=== PATIENT | male | born 1995 | race Caucasian/White ===

== ENCOUNTER 2018-10-12 23:50 | Observation (INO) | payer OTHER ==
[2018-10-12] MEDS ORDERED: Diphtheria,Pertussis(Acell),Tetanus Vaccine 0.5 ML Syringe IM ONE (23:52)
[2018-10-12] MEDS ORDERED: Morphine 2 MG/ML Syringe IVPUSH ONE (23:52)
[2018-10-12] MEDS ORDERED: Sodium Chloride 0.9% 1,000 ML IV ONE (23:52)
[2018-10-12] MEDS ORDERED: Ondansetron 4 MG/2 ML SDV IVPUSH ONE (23:53)
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
[2018-10-13] MEDS ORDERED: diphenhydrAMINE 50 MG/ML SDV IVPUSH PRN (00:43)
[2018-10-13] MEDS ORDERED: Sodium Chloride 0.9% 2.5 ML Syringe FLUSH PRN (00:43)
[2018-10-13] MEDS ORDERED: Sodium Chloride 0.9% 10 ML SDV IV PRN (00:43)
[2018-10-13] MEDS ORDERED: Sodium Chloride 0.9% 10 ML Syringe FLUSH PRN (00:43)
[2018-10-13] MEDS ORDERED: HYDROmorphone 2 MG/ML SDV IVPUSH PRN (00:43)
[2018-10-13] MEDS ORDERED: Acetaminophen/HYDROcodone 325-5 MG Tab PO PRN (00:43)
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
[2018-10-13] MEDS: Sodium Chloride 0.9% 1,000 ML IV SCH ×2 (02:10→10:15)
[2018-10-13] MEDS: Bacitracin Oint 28.35 GM Tube TOP SCH ×2 (02:26→13:18)
[2018-10-13] MEDS ORDERED: HYDROmorphone 1 MG/ML Syringe IVPUSH PRN (07:45)
[2018-10-13] MEDS ORDERED: Bacitracin Oint 28.35 GM Tube TOP SCH (09:00)
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
== END 2018-10-13 16:00 | disposition home or self-care (01) ==
LOC: MW.ED 23:50 → MW.MS 10-13 00:43
PROVIDERS: ADMIT Surgery; ATTEND Surgery
DX: T20.29XA Burn of second degree of multiple sites of head, face, and neck, initial encounter (principal); T23.242A Burn of second degree of multiple left fingers (nail), including thumb, initial encounter; T23.241A Burn of second degree of multiple right fingers (nail), including thumb, initial encounter; W40.1XXA Explosion of explosive gases, initial encounter
CPT/HCPCS: 71045; 90471; 90715; 96361; 96374; 96375; 99285; A9270; J2270; J2405; J7040; G0378

== ENCOUNTER 2020-01-31 17:11 | Emergency (ER) | payer SELFPAY ==
[2020-01-31] MEDS ORDERED: Dexamethasone 10 MG/ML SDV PO ONE (17:57)
[2020-01-31] MEDS ORDERED: Amoxicillin 500 MG Cap PO ONE (17:59)
--- NOTE | 2020-01-31 18:05 | EDM.PDOC ---
ED HPI GENERAL MEDICAL PROBLEM - General Chief Complaint: ENT Problem Stated Complaint: POSSIBLE STREP THROAT Time Seen by Provider: 01/31/20 17:11 Source of Information: Reports: Patient History Limitations: Reports: No Limitations - History of Present Illness INITIAL COMMENTS - FREE TEXT/NARRATIVE: HISTORY AND PHYSICAL: History of present illness: Patient is a 24-year-old male who presents to the ED today with concern of 1 day of sore throat. Patient states that he has been able to eat and drink but does have pain with swallowing. Patient states he has had strep throat in the past and that his symptoms today feel similar to when he has strep throat. Patient denies any other symptoms or concerns. Patient denies any health history. Patient denies fever, chills, chest pain, shortness of breath, or cough. Denies headache, neck stiff ness, change in vision, syncope, or near syncope. Denies nausea, vomiting, abdominal pain, diarrhea, constipation, or dysuria. Has not noted any blood in urine or stool. Patient has been eating and drinking appropriately. Review of systems: As per history of present illness and below otherwise all systems reviewed and negative. Past medical history: As per history of present illness and as reviewed below otherwise noncontributory. Surgical history: As per history of present illness and as reviewed below otherwise noncont ributory. Social history: See social history for further information Family history: As per history of present illness and as reviewed below otherwise noncontributory. Physical exam: General: Patient is alert, oriented, and in no acute distress. Patient sitting comfortably on exam table. HEENT: Atraumatic, normocephalic, pupils equal and reactive bilaterally, negative for conjunctival pallor or scleral icterus, mucous membranes moist, TMs normal bilaterally, uvula is mildly enlarged but midline, tonsils with white exudate bilaterally, neck supple, nontender, trachea midline. No drooling or trismus noted. No meningeal signs. No hot potato voice noted. Lungs: Clear to auscultation, breath sounds equal bilaterally, chest nontender. Heart: S1S2, regular rate and rhythm without overt murmur Abdomen: Soft, nondistended, nontender. Negative for masses or hepatosplenomegaly. Negative for costovertebral tenderness. Pelvis: Stable nontender. Genitourinary: Deferred. Rectal: Deferred. Skin: Intact, warm, dry. No lesions or rashes noted. Extremities: Atraumatic, negative for cords or calf pain. Neurovascular unremarkable. Neuro: Awake, alert, oriented. Cranial nerves II through XII unremarkable. Cerebellum unremarkable. Motor and sensory unremarkable throughout. Exam nonfocal. Notes: Dr. Starkey verbally involved in patient care. The pharmacies are closed today, will give first dose of amoxicillin today in the ED. Discussed importance for follow-up with a primary care provider. Voices understanding and is agreeable to plan of care. Denies any further questions or concerns at this time. Diagnostics: None Therapeutics: Decadron, Amoxicillin Prescription: Amoxicillin Impression: Uvulitis Pharyngitis Plan: 1. Take medication as prescribed. You can alternate ibuprofen and Tylenol as directed for pain and discomfort. 2. Follow-up with a primary care provider as discussed. Return to the ED as needed and as discussed. Definitive disposition and diagnosis as appropriate pending reevaluation and review of above. thorat Pain Score (Numeric/FACES): 5 - Related Data Allergies Allergy/AdvReac Type Severity Reaction Status Date / Time No Known Allergies Allergy Verified 01/31/20 17:26 Home Meds: Home Meds Amoxicillin 500 mg PO BID 10 Days #20 tablet 01/31/20 [Rx] Past Medical History - Past Health History Medical/Surgical History: Denies Medical/Surgical History Social & Family History - Family History Family Medical History: Noncontributory - Caffeine Use Caffeine Use: Reports: None - Recreational Drug Use Recreational Drug Use: No ED ROS GENERAL - Review of Systems Review Of Systems: Comprehensive ROS is negative, except as noted in HPI. ED EXAM, GENERAL - Physical Exam Exam: See Below (see dictation) Course - Vital Signs Last Recorded V/S: Last Vital Signs Temp 97.5 F 01/31/20 17:27 Pulse 82 01/31/20 17:27 Resp 18 01/31/20 17:27 BP 142/61 H 01/31/20 17:27 Pulse Ox 99 01/31/20 17:27 - Orders/Labs/Meds Meds: Medications Discontinued Medications Generic Name Dose Route Start Last Admin Trade Name Freq PRN Reason Stop Dose Admin Amoxicillin 500 mg 01/31/20 17:59 Amoxil PO 01/31/20 18:00 ONETIME ONE Dexamethasone 8 mg 01/31/20 17:57 Dexamethasone PO 01/31/20 17:58 ONETIME ONE Departure - Departure Time of Disposition: 18:00 Disposition: Home, Self-Care 01 Clinical Impression: Uvulitis Pharyngitis Qualifiers: Pharyngitis/tonsillitis etiology: unspecified etiology Qualified Code(s): J02.9 - Acute pharyngitis, unspecified - Discharge Information Prescriptions: Amoxicillin 500 mg PO BID 10 Days #20 tablet Referrals: PCP,None [Primary Care Provider] - Additional Instructions: The following information is given to patients seen in the emergency department who are being discharged to home. This information is to outline your options for follow-up care. We provide all patients seen in our emergency department with a follow-up referral. The need for follow-up, as well as the timing and circumstances, are variable depending upon the specifics of your emergency department visit. If you don't have a primary care physician on staff, we will provide you with a referral. We always advise you to contact your personal physician following an emergency department visit to inform them of the circumstance of the visit and for follow-up with them and/or the need for any referrals to a consulting specialist. The emergency department will also refer you to a specialist when appropriate. This referral assures that you have the opportunity for follow-up care with a specialist. All of these measure are taken in an effort to provide you with optimal care, which includes your follow-up. Under all circumstances we always encourage you to contact your private physician who remains a resource for coordinating your care. When calling for follow-up care, please make the office aware that this follow-up is from your recent emergency room visit. If for any reason you are refused follow-up, please contact the [facility] at and asked to speak to the emergency department charge nurse. [facility] [address] [place] [id number] [id number] 1. Take medication as prescribed. You can alternate ibuprofen and Tylenol as directed for pain and discomfort. 2. Follow-up with a primary care provider as discussed. Return to the ED as needed and as discussed. Sepsis Event Note (ED) - Evaluation Sepsis Screening Result: No Definite Risk - Focused Exam Vital Signs: Vital Signs Temp Pulse Resp BP Pulse Ox 01/31/20 17:27 97.5 F 82 18 142/61 H 99
== END 2020-01-31 18:35 | disposition home or self-care (01) ==
LOC: MW.ED 17:11
DX: J02.9 Acute pharyngitis, unspecified (principal); K12.2 Cellulitis and abscess of mouth
CPT/HCPCS: 99282; A9270; J1100

== ENCOUNTER 2021-08-11 00:03 | Emergency (ER) | payer SELFPAY | END 2021-08-11 03:49 | LOC: MW.ED 00:03 | DX: T40.2X1A Poisoning by other opioids, accidental (unintentional), initial encounter (principal) | CPT/HCPCS: 71045; 71045-26; 93005; 93010; 99284-25; 99285 ==

== ENCOUNTER 2021-10-05 15:24 | Emergency (ER) | payer SELFPAY ==
[2021-10-05 16:27] LABS: ACETAMINOPHEN <2.0 ug/mL; BLOOD UREA NITROGEN,BUN 19 mg/dL (7.0-18.0); CARBON DIOXIDE,CO2 29.9 mmol/L (21.0-32.0); CHLORIDE,CL 104 mmol/L (98-107); GLUCOSE RANDOM 95 mg/dL (74-106); SODIUM,NA 141 mmol/L (136-148)
== END 2021-10-05 17:39 ==
LOC: MW.ED 15:24
DX: R45.851 Suicidal ideations (principal); F19.10 Other psychoactive substance abuse, uncomplicated; Z20.822 Contact with and (suspected) exposure to COVID-19
CPT/HCPCS: 36415; 80053; 80143; 80179; 80305-QW; 80307; 81003; 83735; 84443; 85025; 93005; 99285-25; U0002